=== PATIENT | male | born 1950 | race African-American/Black ===

== ENCOUNTER 2022-05-05 01:30 | Inpatient (IN) | payer OTHER, MEDICAID ==
[~2022-05-05] VITALS: Ht 177.8 cm; Wt 97.5 kg
[2022-05-05 04:28] LABS: BASOPHILS % 0.5 % (0.0-2.0); EOSINOPHILS % 0.5 % (0.0-5.0); HEMATOCRIT. 44.5 % (42.0-52.0); HEMOGLOBIN. 14.5 g/dL (14.0-18.0); LYMPHOCYTES % 14.6 % (20.0-50.0); MEAN CORPUSCULAR HEMOGLOBIN 32.5 pg (28.0-32.0); MEAN CORPUSCULAR VOLUME 99.9 fL (80.0-94.0); MEAN PLATELET VOLUME 8.1 fl (7.4-10.4); MONOCYTES % 5.8 % (2.0-8.0); NEUTROPHILS % 78.6 % (40.0-76.0); PLATELET 209 x1000/uL (130-400); RED BLOOD CELL COUNT 4.45 mill/uL (4.7-6.1); RED CELL DISTRIBUTION WIDTH 18.5 % (11.6-14.6)
[2022-05-05 04:35] LABS: CHLORIDE 107 mEq/L (98-107)
[2022-05-05] MEDS ORDERED: FUROSEMIDE 40MG/4ML VIAL IVP ONE (05:00)
[2022-05-05] MEDS ORDERED: HYDROCODONE/ACETAMINOPHEN 5/325MG TABLET PO ONE (05:00)
[2022-05-05] MEDS ORDERED: AZITHROMYCIN 500MG/250ML 250 ML IV ONE (05:45)
[2022-05-05] MEDS ORDERED: CEFTRIAXONE 1 G PREMIX 50 ML IV ONE (05:45)
[2022-05-05] MEDS ORDERED: HYDROCODONE/ACETAMINOPHEN 5/325MG TABLET PO SCH (06:45)
[2022-05-05] MEDS ORDERED: FUROSEMIDE 40MG/4ML VIAL IVP SCH (06:45)
[2022-05-05] MEDS ORDERED: ONDANSETRON HCL 4MG/2ML INJ IV PRN (13:15)
[2022-05-05] MEDS ORDERED: CLONIDINE 0.1MG TABLET PO PRN (13:15)
[2022-05-05] MEDS: LEVOFLOXACIN 500MG PREMIX 100 ML IV SCH (14:49)
[2022-05-05 17:50] LABS: CREATINE KINASE MB FRACTION 1.3 ng/mL (0.5-3.6)
[2022-05-05 20:00] VITALS: BP 151/113
[2022-05-05] MEDS: ENOXAPARIN 40MG/0.4ML SYR SUBCUT SCH (21:58)
[2022-05-05] MEDS: FUROSEMIDE 40MG/4ML VIAL IVP SCH (21:58)
[2022-05-05] MEDS: ACETAMINOPHEN 325MG TABLET PO PRN (21:59)
[2022-05-06] VITALS (7 sets, daily range): BP systolic 124–151; BP diastolic 87–113
[2022-05-06 00:45] LABS: CREATINE KINASE MB FRACTION 1.4 ng/mL (0.5-3.6)
[2022-05-06 06:48] LABS: BASOPHILS % 0.4 % (0.0-2.0); EOSINOPHILS % 0.1 % (0.0-5.0); HEMATOCRIT. 40.2 % (42.0-52.0); HEMOGLOBIN. 13.4 g/dL (14.0-18.0); LYMPHOCYTES % 9.1 % (20.0-50.0); MEAN CORPUSCULAR HEMOGLOBIN 33.2 pg (28.0-32.0); MEAN CORPUSCULAR VOLUME 99.8 fL (80.0-94.0); MEAN PLATELET VOLUME 8.3 fl (7.4-10.4); NEUTROPHILS % 84.4 % (40.0-76.0); PLATELET 169 x1000/uL (130-400); RED BLOOD CELL COUNT 4.03 mill/uL (4.7-6.1); RED CELL DISTRIBUTION WIDTH 18.5 % (11.6-14.6)
[2022-05-06 07:26] LABS: CHLORIDE 101 mEq/L (98-107)
[2022-05-06] MEDS: FUROSEMIDE 40MG/4ML VIAL IVP SCH ×2 (10:28→20:20)
[2022-05-06] MEDS ORDERED: MAGNESIUM 2 G PREMIX 50 ML IV NR (13:30)
[2022-05-06] MEDS: LEVOFLOXACIN 500MG PREMIX 100 ML IV SCH (14:35)
[2022-05-06] MEDS: ENOXAPARIN 40MG/0.4ML SYR SUBCUT SCH (17:05)
[2022-05-06] MEDS: CARVEDILOL 6.25 MG TABLET PO SCH (20:20)
[2022-05-06] MEDS: ACETAMINOPHEN 325MG TABLET PO PRN (20:24)
[2022-05-07] VITALS: BP 123/94
[2022-05-07 08:00] VITALS: BP 128/94
[2022-05-07] MEDS: FUROSEMIDE 40MG/4ML VIAL IVP SCH ×2 (09:01→20:50)
[2022-05-07] MEDS: CARVEDILOL 6.25 MG TABLET PO SCH ×2 (09:02→20:51)
[2022-05-07 12:00] VITALS: BP 152/92
[2022-05-07] MEDS: LEVOFLOXACIN 500MG PREMIX 100 ML IV SCH (13:07)
[2022-05-07 16:00] VITALS: BP 110/84
[2022-05-07] MEDS: ENOXAPARIN 40MG/0.4ML SYR SUBCUT SCH (17:22)
[2022-05-07 20:00] VITALS: BP 133/97
[2022-05-07] MEDS: ACETAMINOPHEN 325MG TABLET PO PRN (20:50)
[2022-05-08 08:00] VITALS: BP 137/101
[2022-05-08] MEDS: CARVEDILOL 6.25 MG TABLET PO SCH ×2 (08:37→21:00)
[2022-05-08] MEDS: FUROSEMIDE 40MG/4ML VIAL IVP SCH ×2 (10:17→21:26)
[2022-05-08] MEDS: LEVOFLOXACIN 500MG TABLET PO SCH (10:17)
[2022-05-08 12:00] VITALS: BP 121/89
[2022-05-08 16:00] VITALS: BP 113/86
[2022-05-08 16:36] LABS: BASOPHILS % 0.5 % (0.0-2.0); EOSINOPHILS % 0.4 % (0.0-5.0); HEMATOCRIT. 41.1 % (42.0-52.0); HEMOGLOBIN. 13.6 g/dL (14.0-18.0); LYMPHOCYTES % 12.7 % (20.0-50.0); MEAN CORPUSCULAR HEMOGLOBIN 33.1 pg (28.0-32.0); MEAN CORPUSCULAR VOLUME 99.8 fL (80.0-94.0); MEAN PLATELET VOLUME 9.6 fl (7.4-10.4); MONOCYTES % 7.5 % (2.0-8.0); NEUTROPHILS % 78.9 % (40.0-76.0); PLATELET 161 x1000/uL (130-400); RED BLOOD CELL COUNT 4.12 mill/uL (4.7-6.1); RED CELL DISTRIBUTION WIDTH 18.6 % (11.6-14.6)
[2022-05-08] MEDS: ENOXAPARIN 40MG/0.4ML SYR SUBCUT SCH (17:10)
[2022-05-08] MEDS: ACETAMINOPHEN 325MG TABLET PO PRN ×2 (17:11→21:23)
[2022-05-08 20:00] VITALS: BP 108/83
[2022-05-09] VITALS: BP 123/93
[2022-05-09 04:00] VITALS: BP 125/99
[2022-05-09 05:42] LABS: BASOPHILS % 0.5 % (0.0-2.0); EOSINOPHILS % 0.2 % (0.0-5.0); HEMATOCRIT. 38.9 % (42.0-52.0); HEMOGLOBIN. 12.9 g/dL (14.0-18.0); LYMPHOCYTES % 9.5 % (20.0-50.0); MEAN CORPUSCULAR HEMOGLOBIN 32.8 pg (28.0-32.0); MEAN CORPUSCULAR VOLUME 99.3 fL (80.0-94.0); MEAN PLATELET VOLUME 9.4 fl (7.4-10.4); MONOCYTES % 10.8 % (2.0-8.0); PLATELET 137 x1000/uL (130-400); RED BLOOD CELL COUNT 3.92 mill/uL (4.7-6.1); RED CELL DISTRIBUTION WIDTH 18.6 % (11.6-14.6)
[2022-05-09 08:00] VITALS: BP 128/96
[2022-05-09] MEDS: FUROSEMIDE 40MG/4ML VIAL IVP SCH ×2 (08:46→21:22)
[2022-05-09] MEDS: CARVEDILOL 6.25 MG TABLET PO SCH ×2 (08:46→21:00)
[2022-05-09 12:00] VITALS: BP 119/86
[2022-05-09] MEDS: LEVOFLOXACIN 500MG TABLET PO SCH (12:22)
[2022-05-09] MEDS: ACETAMINOPHEN 325MG TABLET PO PRN ×2 (12:34→17:23)
[2022-05-09 16:00] VITALS: BP 105/77
[2022-05-09] MEDS: ENOXAPARIN 40MG/0.4ML SYR SUBCUT SCH (17:01)
[2022-05-09 20:00] VITALS: BP 105/78
[2022-05-10] VITALS: BP 106/80
[2022-05-10] MEDS: ACETAMINOPHEN 325MG TABLET PO PRN (00:22)
[2022-05-10 04:00] VITALS: BP 145/80
== END 2022-05-10 08:40 | disposition home or self-care (01) | DRG 291 ==
LOC: ER 01:30 → MICUSO 10:21 → EDBEDREQ 10:51 → EDBEDREQTM 10:51 → 7EST 18:08
PROVIDERS: ADMIT Internal Medicine; ATTEND Internal Medicine
DX: I11.0 Hypertensive heart disease with heart failure (principal); I50.41 Acute combined systolic (congestive) and diastolic (congestive) heart failure; J18.1 Lobar pneumonia, unspecified organism; I47.20 Ventricular tachycardia, unspecified; I42.9 Cardiomyopathy, unspecified; I08.1 Rheumatic disorders of both mitral and tricuspid valves; I25.10 Atherosclerotic heart disease of native coronary artery without angina pectoris; Z20.822 Contact with and (suspected) exposure to COVID-19; F17.210 Nicotine dependence, cigarettes, uncomplicated; Z59.00 Homelessness unspecified; I25.2 Old myocardial infarction
CPT/HCPCS: 36415; 71045; 80048; 80053; 80076; 82550; 82553; 83036; 83735; 83880; 84436; 84443; 84480; 84484; 85025; 87426; 93005; 93306; 93970; 97162; 99285; J0456; J0696; J1650; J1940; J1956; J3475